=== PATIENT | female | born 1975 | race Caucasian/White ===

== ENCOUNTER 2018-04-17 21:55 | Emergency (ER) | payer MEDICAID ==
[2018-04-17 22:04] VITALS: Ht 167.6 cm
[2018-04-17 23:37] VITALS: BP 145/87
== END 2018-04-17 23:37 | disposition home or self-care (01) ==
LOC: ED 21:55
DX: J40 Bronchitis, not specified as acute or chronic (principal); R03.0 Elevated blood-pressure reading, without diagnosis of hypertension; E03.9 Hypothyroidism, unspecified

== ENCOUNTER 2020-08-30 14:49 | Emergency (ER) | payer MEDICAID, SELFPAY ==
[~2020-08-30] VITALS: Ht 157.5 cm; Wt 70.8 kg
[2020-08-30 14:56] VITALS: Ht 157.5 cm; Wt 70.8 kg
[2020-08-30 18:01] VITALS: BP 114/74
== END 2020-08-30 18:01 | disposition home or self-care (01) ==
LOC: ED 14:49
DX: J40 Bronchitis, not specified as acute or chronic (principal); E03.9 Hypothyroidism, unspecified